=== PATIENT | male | born 1945 | race Caucasian/White ===

== ENCOUNTER 2023-12-13 05:49 | Day surgery (SDC) | payer MEDICARE, OTHER ==
[2023-12-07 11:26] LABS: BASOPHILS # (AUTO) 0.1 X10'3 (0-0.2); BASOPHILS % (AUTO) 0.8 % (0-1); EOSINOPHILS # (AUTO) 0.2 X10'3 (0-0.9); EOSINOPHILS % (AUTO) 1.9 % (0-6); LYMPHOCYTES # (AUTO) 1.3 X10'3 (1.1-4.8); LYMPHOCYTES % (AUTO) 14.5 % (21-51); MEAN CORPUSCULAR HEMOGLOBIN 29.6 PG (27.0-31.0); MEAN CORPUSCULAR HGB CONC 33.1 g/dL (33.0-36.5); MEAN CORPUSCULAR VOLUME 89.5 FL (78-98); MEAN PLATELET VOLUME 6.2 FL (7.4-10.4); MONOCYTES # (AUTO) 0.6 X10'3 (0-0.9); MONOCYTES % (AUTO) 6.6 % (2-12); NEUTROPHILS # (AUTO) 6.6 X10'3 (1.8-7.7); NEUTROPHILS % (AUTO) 76.2 % (42-75); PRE OP HEMOGLOBIN 14.9 g/dL (14.0-17.9); PRE OP PLATELET COUNT 271 X10'3 (140-440); PRE OP WHITE BLOOD COUNT 8.7 10'3 (4.8-10.8); RED BLOOD COUNT 5.03 X10'6 (4.70-6.10)
[2023-12-07 11:41] LABS: ALBUMIN 3.3 G/DL (3.4-5.0); ALBUMIN/GLOBULIN RATIO 0.9 (1.1-1.5); ALKALINE PHOSPHATASE 82 IU/L (46-116); BLOOD UREA NITROGEN 21 MG/DL (7-18); BUN/CREATININE RATIO 12.4 (10.0-20.0); CALCIUM 8.9 MG/DL (8.5-10.1); CHLORIDE 105 MMOL/L (99-107); CREATININE 1.69 MG/DL (0.60-1.10); PRE OP ALT 17 U/L (30-65); PRE OP ANION GAP 6 (8-16); PRE OP AST 15 U/L (10-37); PRE OP BILIRUB, TOTAL 0.9 MG/DL (0.0-1.0); PRE OP GLUCOSE 116 MG/DL (70-104); PRE OP POTASSIUM 4.9 MMOL/L (3.4-5.1); PRE OP SODIUM 142 MMOL/L (135-145); TOTAL CARBON DIOXIDE 31.1 MMOL/L (24-32); TOTAL PROTEIN 7.1 G/DL (6.4-8.2); eGFR 40 ML/MIN
[~2023-12-13] VITALS: Ht 193 cm; Wt 102.1 kg
[~2023-12-13 05:49] MED LIST: AMLO5TAB10 PO; ASPI-611 PO; ATOR40TA71 PO; ATRNS; CLON0.1T2 PO; CYCL5TAB PO; DICL100G59 TOP; DOCUMENT DATE & TIME OF BETA-BLOCKER PO ONE; KRILL OIL; LEVO150T8 PO; LOSA100T58 PO; LYR75C PO; MAGN100T PO; OMEGA; OMEP20CA16 PO; POLY119P2 PO; SILD20TA2 PO; TEST60GE2 TOP; TRAM50TA2 PO; TURMERIC; VITAMIN D-3; ZINC; cefazolin 2gm/D5W 100mL 100 ML IV ONE; famotidine 20mg tablet PO ONE; ringers solution, lacted 1,000 ML IV SCH
[2023-12-13 05:55] VITALS: BP 124/67; PULSE 63; RESP 16; TEMP 98.1; O2SAT 98
[2023-12-13] MEDS ORDERED: METO-384 PO (06:20)
[2023-12-13] MEDS ORDERED: BUPIVAcaine/PF 2.5mg/ml (0.25%) 10ml vial ONE (06:28)
[2023-12-13] MEDS ORDERED: BUPIVAcaine 0.5% inj/PF 0 ML ONE (07:18)
[2023-12-13] MEDS ORDERED: LIDOcaine 1% 30ml preserv. free vial ONE (07:18)
[2023-12-13] MEDS ORDERED: LIDOcaine 2% (20mg/ml) 5ml vial ONE (07:18)
[2023-12-13] MEDS ORDERED: BUPIVAcaine 2.5mg/ml inj 50ml vial (contains preservative) ONE (07:19)
[2023-12-13] MEDS ORDERED: meperidine/PF 25mg/ml syringe IV PRN (07:25)
[2023-12-13] MEDS ORDERED: proCHLORperazine 10 MG/2 ml inj IV PRN (07:25)
[2023-12-13] MEDS ORDERED: morphine 4 MG/ML inj SYRINge IV PRN (07:25)
[2023-12-13] MEDS ORDERED: acetaminophen 1,000mg/100ml IV 100 ML IV ONE (07:25)
[2023-12-13] MEDS ORDERED: hydrALAZINE 20mg/ml inj. IV PRN (07:25)
[2023-12-13] MEDS ORDERED: ondansetron/PF 4mg/2ml inj IV PRN ×2 (07:25)
[2023-12-13] MEDS ORDERED: morphine 2 MG/ML inj. syringe IV PRN (07:25)
[2023-12-13] MEDS ORDERED: HYDROmorphone/PF 0.2 MG/ML SYRINGE IV PRN ×2 (07:25)
[2023-12-13] MEDS ORDERED: ringers solution, lacted 1,000 ML IV SCH ×2 (07:25)
[2023-12-13] MEDS ORDERED: labetalol 20mg/4ml (5mg/ml) syringe IV PRN (07:25)
[2023-12-13] MEDS ORDERED: propofol 10mg/ml 20ml vial IV ONE (07:44)
[2023-12-13] MEDS ORDERED: fentaNYL/PF 50MCG/1 ML 2ML syringe ONE (07:48)
[2023-12-13] MEDS ORDERED: midazolam 1 mg/ML 2ml injection ONE (08:08)
[2023-12-13 08:14] VITALS: BP 108/50; PULSE 60; RESP 14; O2SAT 96
[2023-12-13 08:18] VITALS: BP 108/50; PULSE 60; RESP 14; O2SAT 96
[2023-12-13 08:20] VITALS: BP 117/59; PULSE 59; RESP 11; O2SAT 95
[2023-12-13 08:30] VITALS: BP 143/80; PULSE 59; RESP 12; O2SAT 99
[2023-12-13 08:40] VITALS: BP 132/79; PULSE 60; RESP 11; O2SAT 98
== END 2023-12-13 08:54 | disposition home or self-care (01) ==
LOC: PAS 05:49
PROVIDERS: ATTEND Orthopaedic Surgery Hand Surgery
DX: G56.01 Carpal tunnel syndrome, right upper limb (principal); I12.9 Hypertensive chronic kidney disease with stage 1 through stage 4 chronic kidney disease, or unspecified chronic kidney disease; N18.30 Chronic kidney disease, stage 3 unspecified; E78.5 Hyperlipidemia, unspecified; M19.90 Unspecified osteoarthritis, unspecified site; K21.9 Gastro-esophageal reflux disease without esophagitis; I25.2 Old myocardial infarction; F43.10 Post-traumatic stress disorder, unspecified; F41.9 Anxiety disorder, unspecified; M17.0 Bilateral primary osteoarthritis of knee; Z95.1 Presence of aortocoronary bypass graft; Z90.49 Acquired absence of other specified parts of digestive tract; Z98.890 Other specified postprocedural states; Z85.21 Personal history of malignant neoplasm of larynx; Z79.899 Other long term (current) drug therapy; Z72.89 Other problems related to lifestyle
CPT/HCPCS: 36415; 64721; 80053; 82948; 85025; 93005; J0690; J2250; J2704; J3010; J3490; J7030; J7120; Z7506; Z7512; A4215; A6449; S0020

== ENCOUNTER 2024-01-10 06:28 | Day surgery (SDC) | payer MEDICARE, OTHER ==
[2024-01-03 14:32] LABS: BASOPHILS % (AUTO) 0.5 % (0-1); EOSINOPHILS # (AUTO) 0.1 X10'3 (0-0.9); EOSINOPHILS % (AUTO) 1.4 % (0-6); HEMATOCRIT 43.8 % (42.0-52.0); HEMOGLOBIN 14.6 g/dl (14.0-17.9); LYMPHOCYTES # (AUTO) 1.6 X10'3 (1.1-4.8); LYMPHOCYTES % (AUTO) 17.2 % (21-51); MEAN CORPUSCULAR HEMOGLOBIN 29.9 PG (27.0-31.0); MEAN CORPUSCULAR HGB CONC 33.4 g/dL (33.0-36.5); MEAN CORPUSCULAR VOLUME 89.7 FL (78-98); MEAN PLATELET VOLUME 6.2 FL (7.4-10.4); MONOCYTES # (AUTO) 0.7 X10'3 (0-0.9); NEUTROPHILS # (AUTO) 6.9 X10'3 (1.8-7.7); NEUTROPHILS % (AUTO) 73.9 % (42-75); PLATELET COUNT 283 X10'3 (140-440); RED BLOOD COUNT 4.89 X10'6 (4.70-6.10); RED CELL DISTRIBUTION WIDTH 15.4 % (11.5-14.5); WHITE BLOOD COUNT 9.4 X10'3 (4.5-11.0)
[2024-01-03 15:08] LABS: ALANINE AMINOTRANSFERASE 19 U/L (12-78); ALBUMIN 3.7 G/DL (3.4-5.0); ALBUMIN/GLOBULIN RATIO 1.1 (1.1-1.5); ALKALINE PHOSPHATASE 74 IU/L (46-116); ANION GAP 6 (8-16); ASPARTATE AMINO TRANSFERASE 12 U/L (10-37); BILIRUBIN,TOTAL 0.9 MG/DL (0.1-1.0); BLOOD UREA NITROGEN 31 MG/DL (7-18); BUN/CREATININE RATIO 15.6 (10.0-20.0); CALCIUM 8.8 MG/DL (8.5-10.1); CHLORIDE 108 MMOL/L (99-107); CREATININE 1.99 MG/DL (0.60-1.10); GLUCOSE 106 MG/DL (70-104); POTASSIUM 4.4 MMOL/L (3.5-5.1); SODIUM 142 MMOL/L (135-145); TOTAL CARBON DIOXIDE 27.8 MMOL/L (24-32); eGFR 33 ML/MIN
[~2024-01-10] VITALS: Ht 193 cm; Wt 99.8 kg
[2024-01-10] MEDS: cefazolin 2gm/D5W 100mL 100 ML IV ONE (05:30)
[~2024-01-10 06:28] MED LIST changes: +METO-384 PO; -cefazolin 2gm/D5W 100mL 100 ML IV ONE; -famotidine 20mg tablet PO ONE; -ringers solution, lacted 1,000 ML IV SCH
[2024-01-10 06:35] VITALS: BP 112/60; PULSE 52; RESP 16; TEMP 97.6; O2SAT 97
[2024-01-10] MEDS: ringers solution, lacted 1,000 ML IV SCH (07:27)
[2024-01-10] MEDS: famotidine 20mg tablet PO ONE (07:27)
[2024-01-10] MEDS ORDERED: HYDR12.55 PO (07:40)
[2024-01-10] MEDS ORDERED: fentaNYL/PF 50MCG/1 ML 2ML syringe ONE (08:34)
[2024-01-10] MEDS: LIDOcaine 2% (20mg/ml) 5ml vial SQ ONE (08:45)
[2024-01-10] MEDS: BUPIVAcaine/PF 2.5mg/ml (0.25%) 10ml vial IJ ONE (08:45)
[2024-01-10] MEDS ORDERED: propofol inj 20 ML IV ONE (08:55)
[2024-01-10] MEDS ORDERED: midazolam 1 mg/ML 2ml injection ONE (08:55)
[2024-01-10 08:59] VITALS: BP 144/68; PULSE 61; RESP 14; O2SAT 99
[2024-01-10] MEDS ORDERED: proCHLORperazine 10 MG/2 ml inj IV PRN (09:00)
[2024-01-10] MEDS ORDERED: ringers solution, lacted 1,000 ML IV SCH (09:00)
[2024-01-10] MEDS ORDERED: morphine 2 MG/ML inj. syringe IV PRN (09:00)
[2024-01-10] MEDS ORDERED: hydrALAZINE 20mg/ml inj. IV PRN (09:00)
[2024-01-10] MEDS ORDERED: fentaNYL/PF 50MCG/1 ML 2ML syringe IV PRN (09:00)
[2024-01-10] MEDS ORDERED: meperidine/PF 25mg/ml syringe IV PRN (09:00)
[2024-01-10] MEDS ORDERED: labetalol 20mg/4ml (5mg/ml) syringe IV PRN (09:00)
[2024-01-10] MEDS ORDERED: ondansetron/PF 4mg/2ml inj IV PRN (09:00)
[2024-01-10] MEDS ORDERED: acetaminophen 1,000mg/100ml IV 100 ML IV ONE (09:00)
[2024-01-10 09:10] VITALS: BP 126/63; PULSE 57; RESP 14; O2SAT 99
[2024-01-10 09:20] VITALS: BP 131/74; PULSE 57; RESP 11; O2SAT 98
[2024-01-10 09:30] VITALS: BP 150/72; PULSE 62; RESP 12; O2SAT 99
== END 2024-01-10 09:39 | disposition home or self-care (01) ==
LOC: PAS 06:28
PROVIDERS: ATTEND Orthopaedic Surgery Hand Surgery
DX: G56.02 Carpal tunnel syndrome, left upper limb (principal); I25.2 Old myocardial infarction; K21.9 Gastro-esophageal reflux disease without esophagitis; F43.10 Post-traumatic stress disorder, unspecified; I12.9 Hypertensive chronic kidney disease with stage 1 through stage 4 chronic kidney disease, or unspecified chronic kidney disease; N18.30 Chronic kidney disease, stage 3 unspecified; Z98.890 Other specified postprocedural states; Z90.49 Acquired absence of other specified parts of digestive tract; Z72.89 Other problems related to lifestyle; Z95.1 Presence of aortocoronary bypass graft; Z85.21 Personal history of malignant neoplasm of larynx; Z79.899 Other long term (current) drug therapy; Z82.49 Family history of ischemic heart disease and other diseases of the circulatory system
CPT/HCPCS: 36415; 64721; 80053; 82948; 85025; J0690; J2250; J2704; J3010; J3490; J7030; J7120; Z7506; Z7512; A4215; A6449